=== PATIENT | male | born 1930 | race Caucasian/White ===

== ENCOUNTER 2018-01-10 11:20 | Emergency (ER) | payer OTHER ==
[~2018-01-10] VITALS: Ht 177.8 cm; Wt 65.9 kg
[~2018-01-10 11:20] MED LIST: ALENDRONATE SOD70 MG PO; ASPIRIN81 M1 PO; ATORVASTATIN CA80 MG PO; BACITRACIN3.5 GM BOTH EYES; CALCIUM 600 +1 EACH PO; CITALOPRAM HBR20 MG PO; CITALOPRAM HBR40 MG PO; COSOPT EYE DROPS5 ML BOTH EYES; CRESTOR40 MG PO; FISH OIL 500 M1 EAC1 PO; GLIMEPIRIDE1 MG PO; GLUCOPHAGE500 MG PO; GRALISE1 EACH PO; MOTRIN600 MG PO; MULTIVITAMINS1 EAC2 PO; OMEPRAZOLE20 MG PO; Tylenol Regular Stre PO; ULTRACET1 TABLET PO
[2018-01-10 11:59] VITALS: BP 151/86
== END 2018-01-10 12:00 | disposition home or self-care (01) ==
LOC: EME 11:20
DX: R04.0 Epistaxis (principal); E78.5 Hyperlipidemia, unspecified; E11.9 Type 2 diabetes mellitus without complications; K21.9 Gastro-esophageal reflux disease without esophagitis; F32.9 Major depressive disorder, single episode, unspecified; Z95.0 Presence of cardiac pacemaker; Z87.891 Personal history of nicotine dependence; Z85.828 Personal history of other malignant neoplasm of skin; Z79.82 Long term (current) use of aspirin; Z79.84 Long term (current) use of oral hypoglycemic drugs; Z88.1 Allergy status to other antibiotic agents
CPT/HCPCS: 99281; 99283

== ENCOUNTER 2018-04-17 19:40 | Observation (INO) | payer OTHER ==
[~2018-04-17] VITALS: Ht 177.8 cm; Wt 71.4 kg
[2018-04-17 23:35] VITALS: BP 166/74
[2018-04-18 03:35] VITALS: BP 157/75
[2018-04-18 07:38] VITALS: BP 143/70
[2018-04-18] MEDS ORDERED: METFORMIN HCL500 MG PO (11:04)
[2018-04-18] MEDS ORDERED: OCEAN NASAL 0.645 ML BOTH NARES (11:05)
[2018-04-18] MEDS ORDERED: MULTIVITAMIN1 EAC2 PO (11:06)
[2018-04-18] MEDS ORDERED: CALCIUM 500-VI1 EAC1 PO (11:06)
[2018-04-18] MEDS ORDERED: NATURAL BALANCE15 M1 BOTH EYES (11:09)
[2018-04-18] MEDS ORDERED: ADVIL PM1 TABLET PO (11:09)
[2018-04-18] MEDS ORDERED: ASPIR 8181 M1 PO (11:10)
[2018-04-18] MEDS ORDERED: ABILIFY2 MG PO (11:12)
[2018-04-18] MEDS ORDERED: OMEPRAZOLE20 MG PO (11:12)
[2018-04-18] MEDS ORDERED: NEOSPORIN ANT70.8 GM TP (11:15)
[2018-04-18] MEDS ORDERED: GLIMEPIRIDE1 MG PO (11:45)
[2018-04-18 12:00] VITALS: BP 146/84
[2018-04-18 13:00] LABS: BASOPHIL (%) 0.3 % (0-1); EOSINOPHIL (%) 0.6 % (0-5); EOSINOPHIL COUNT 0.1 K/uL (0-0.3); HEMATOCRIT 33.9 % (38.0-50.0); HEMOGLOBIN 11.8 G/DL (12.5-16.6); IMMATURE GRANULOCYTE (%) 0.4 % (0.0-0.7); LYMPHOCYTE COUNT 1.1 K/uL (1.0-2.8); MCH 32.1 PG (29.0-34.0); MCHC 34.8 G/DL (30.0-36.0); MCV 92.1 FL (86-99); MONOCYTE (%) 7.8 % (3-12); MONOCYTE COUNT 0.6 K/uL (0-0.8); NEUTROPHIL (%) 76.9 % (45-76); NEUTROPHIL COUNT 5.9 K/uL (1.8-6.4); PLATELET COUNT 175 K/uL (156-360); RBC DIS.WIDTH-CV 12.4 % (11.8-14.6); RBC DIS.WIDTH-SD 41.2 % (39-53); RED BLOOD COUNT 3.68 M/uL (4.00-5.50); WHITE BLOOD COUNT 7.7 K/uL (4.1-10.2)
[2018-04-18 13:08] LABS: CHLORIDE 97 mEq/L (99-109); POTASSIUM 4.5 mEq/L (3.7-5.4); SODIUM 131 mEq/L (136-147)
[2018-04-18 13:10] LABS: GLUCOSE 391 mg/dL (70-99)
[2018-04-18 13:14] LABS: CREATININE 1.1 mg/dL (0.6-1.3); GFR ESTIMATE (CALCULATED) > 59 mL/min/ (58.99-99999)
[2018-04-18 13:15] LABS: UREA NITROGEN (BUN) 23 mg/dL (9-23)
[2018-04-18 16:45] VITALS: BP 150/74
[2018-04-18 20:46] VITALS: BP 139/70
[2018-04-18 23:42] VITALS: BP 128/67
[2018-04-19 06:41] LABS: CHLORIDE 99 MEQ/L (99-109); CREATININE 0.9 MG/DL (0.6-1.3); GFR ESTIMATE (CALCULATED) > 59 mL/min/ (58.99-99999); POTASSIUM 3.9 MEQ/L (3.7-5.4); SODIUM 134 MEQ/L (136-147); UREA NITROGEN (BUN) 23 mg/dL (9-23)
[2018-04-19 06:43] LABS: GLUCOSE 123 mg/dL (70-99)
[2018-04-19 07:44] VITALS: BP 154/82
[2018-04-19 15:26] VITALS: BP 133/65
[2018-04-19 23:34] VITALS: BP 116/59
[2018-04-20 08:26] VITALS: BP 125/71
[2018-04-20 15:43] VITALS: BP 136/72
[2018-04-20 23:49] VITALS: BP 127/73
[2018-04-21 07:32] VITALS: BP 120/70
[2018-04-21 10:17] LABS: HEMOGLOBIN A1c (GLYCOHEMOGLOB) 12.7 % (Below 5.7)
== END 2018-04-21 13:13 | disposition home or self-care (01) ==
LOC: EME → EDBD 19:40 → EDOF 22:23 → 3EAST 22:23 → ENRESERV 22:26 → 3EAST 23:34
PROVIDERS: Hospitalist; Student in an Organized Health Care Education/Training Program
PROC: 0SSBXZZ Reposition Left Hip Joint, External Approach (ICD-10-PCS; principal; 2018-04-17)
DX: S73.005A Unspecified dislocation of left hip, initial encounter (principal); F01.50 Vascular dementia, unspecified severity, without behavioral disturbance, psychotic disturbance, mood disturbance, and anxiety; E11.65 Type 2 diabetes mellitus with hyperglycemia; K21.9 Gastro-esophageal reflux disease without esophagitis; E78.5 Hyperlipidemia, unspecified; Z66 Do not resuscitate; Z79.84 Long term (current) use of oral hypoglycemic drugs; F32.9 Major depressive disorder, single episode, unspecified; I10 Essential (primary) hypertension; Z88.1 Allergy status to other antibiotic agents; Z87.891 Personal history of nicotine dependence; Y04.2XXA Assault by strike against or bumped into by another person, initial encounter
CPT/HCPCS: 73501; 73502; 73700; 80048; 82948; 83036; 85025; 97530 GO; 97530 GP; 99281; 99284; G0378; G8978 CL; G8979 CJ; G8987 GO CL; G8988 GO CK; J1644; J1815; J2270; J2405; J3010; J7040